=== PATIENT | female | born 1995 | race Caucasian/White ===

== ENCOUNTER 2020-08-18 04:38 | Emergency (ER) | payer BC, OTHER ==
[2020-08-18 05:18] LABS: HEMOGLOBIN 11.9 gm/dl (12.3-15.3); RED BLOOD COUNT 4.15 M/UL (4.00-5.10); WHITE BLOOD COUNT 11.4 K/UL (4.5-11.0)
[2020-08-18 05:44] LABS: BUN/CREATININE RATIO 12 (0-10)
[2020-08-18] MEDS ORDERED: OMNICEF 300 MG300 MG PO (09:22)
== END 2020-08-18 09:47 | disposition home or self-care (01) ==
LOC: ER1 04:38
PROVIDERS: Family Medicine
DX: N12 Tubulo-interstitial nephritis, not specified as acute or chronic (principal); R65.10 Systemic inflammatory response syndrome (SIRS) of non-infectious origin without acute organ dysfunction; Q05.9 Spina bifida, unspecified; N31.9 Neuromuscular dysfunction of bladder, unspecified; R00.0 Tachycardia, unspecified; Z20.822 Contact with and (suspected) exposure to COVID-19
CPT/HCPCS: 71046; 80053; 81001; 82550; 82553; 83605; 83615; 83690; 83874; 84484; 85025; 86140; 87040; 87077; 87081; 87086; 87186; 87880; 93005; 96365; 99284; J0696; U0002

== ENCOUNTER → 2021-07-12 | Outpatient (CLI) | payer BC ==
[~2021-07-12] MED LIST: OMNICEF 300 MG300 MG PO
== END ==
LOC: KOH-I 07-02 15:30
DX: N31.9 Neuromuscular dysfunction of bladder, unspecified (principal); N32.89 Other specified disorders of bladder; R16.1 Splenomegaly, not elsewhere classified
CPT/HCPCS: 76775; 76857